=== PATIENT | male | born 1945 | race Caucasian/White ===

== ENCOUNTER 2018-04-19 07:04 | Observation (INO) | payer MEDICARE, OTHER ==
--- NOTE | 2018-04-13 19:01 | HP ---
AMENDED REPORT NOW INCLUDES DESIGNATED COSIGNER HISTORY AND PHYSICAL: DATE OF ADMISSION/SURGERY: 04/19/18 DATE OF OFFICE VISIT: 04/13/18 SURGEON: Bianca Kay MD * (DICTATED BY TANYA KERR) PROCEDURE: Left total knee arthroplasty. CHIEF COMPLAINT: Left knee pain. HISTORY OF PRESENT ILLNESS: Mr. Menchaca is a 72-year-old gentleman with continued complaints of left knee pain. He has failed conservative treatment and elected to proceed with a left total knee arthroplasty, which is scheduled for 04/19/18. PAST MEDICAL HISTORY: High cholesterol and GERD. PAST SURGICAL HISTORY: Right total knee arthroplasty and hernia repair. CURRENT MEDICATIONS: 1. Omeprazole 20 mg daily. 2. Simvastatin 40 mg q.h.s. ALLERGIES: No known drug allergies. FAMILY HISTORY: Cancer and diabetes. SOCIAL HISTORY: This is a 72-year-old gentleman, lives with his . He does not smoke or use drugs. Uses occasional alcohol. REVIEW OF SYSTEMS: A complete 14-point review of systems was reviewed with the patient. It was positive for GERD. He denies a history of DVT, PE, hepatitis, HIV, or anesthesia problems. PHYSICAL EXAMINATION GENERAL: He is well developed, well nourished, in no acute distress. VITAL SIGNS: He stands 5 feet 7 inches tall, weighs 247 pounds. His blood pressure is 138/80, his heart rate is 64. HEENT: Normocephalic, atraumatic. NECK: Supple. No palpable lymph nodes. PULMONARY: The lungs are clear to auscultation bilaterally. CARDIO: Regular rate and rhythm. Strong S1, S2. ABDOMEN: Soft, nontender, nondistended. NEUROLOGICAL: He is alert and oriented x3. MUSCULOSKELETAL: Left lower extremity, the skin is intact. There are no open wounds or abrasions. He has some tenderness over the medial joint line. There is some moderate joint effusion. Range of motion is 10 to 125 degrees of flexion. He has 2+ dorsalis pedis pulse, intact sensation, and his lower extremity muscle group strengths are intact at 5/5. ASSESSMENT AND PLAN: Mr. Menchaca is a 72-year-old gentleman with end-stage osteoarthritis of the left knee. He has failed conservative treatment and elected to proceed with a left total knee arthroplasty. The surgery is scheduled for 04/19/[address] Kay discussed the risks and benefits of the surgery at today's visit and all of his questions were answered. He will follow with Dr. Kay in 2 weeks after the surgery. TANYA KERR [id number]/[facility] #: [id number] ARGELIA
[~2018-04-19 07:04] MED LIST: Buffered Lidocaine 0.9% SYRIN* 5 ML/SYR SYRINGE INTRADERM ONE; Dexamethasone IV* 4 MG/ML 1 ML (4 MG) ONE; EPINEPHRINE 1 MG/ML 1 ML VIAL ONE; KETAMINE HCL* 50 MG/ML 10 ML VIAL ONE; Lactated Ringers 1000 ML Bag* 1,000 ML IV SCH; Lidocaine 2% PF * 5 ML VIAL ONE; Midazolam* 1 MG/ML 2 ML VIAL (2 MG) ONE; Propofol* 10 MG/ML 20 ML BTL ONE; Propofol* 500 MG/50 ML BTL ONE; ROPIVACAINE 5 MG/ML 30 ML BTL (0.5%) ONE; Tranexamic Acid 1,000 MG in NS 0.9% 50 ML* (outpatient use) IV SCH; fentaNYL* 50 MCG/ML 2 ML VIAL (100 MCG VIAL) ONE
--- OUTSIDE RECORDS SUMMARY | 2018-04-19 07:08 | XMS REPORT | Continuity of Care Document ---
:1945 External Reference #:[id number] Author Name Esperanza Jara Care Team Providers Name Role Phone Bethany Do MD Primary Care Physician Unavailable Payers Type Date Identification Numbers Payment Provider Subscriber Policy Number: [id number] Medicare Ansley Gallagher PayID: [id number] [address] [place] [address] Effective: 2010 Policy Number: [id number] Medicare Ansley Gallagher Expires: 2018 PayID: [id number] [address] [place] [address] Effective: 2010 Policy Number: [id number] [employer] Ansley Gallagher PayID: [id number] [address] [place] [address] Advance Directives Description No Information Available Problems Date Description Provider Status Onset: 01/24/2011 Benign essential hypertension Bethany Do M.D. Active Onset: 01/24/2011 Hyperlipidemia Bethany Do M.D. Active Onset: 01/16/2013 Impaired fasting glycaemia Bethany Do M.D. Active Onset: 01/29/2018 Localized, primary osteoarthritis Bianca Kay M.D. 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 Advance Directive Health Care Proxy Zafar Tobacco Use Start: Unknown Never Smoked Cigarettes ETOH Use Denies alcohol use Tobacco Use Start: Unknown Patient has never smoked Smoking Status Reviewed: 04/13/18 Patient has never smoked Exercise Exercises sporadically Type/Frequency Allergies, Adverse Reactions, Alerts Description No Known Drug Allergies Medications Medication Date Status Form Strength Qnty SIG Indications Ordering Provider Omeprazole 10/19/ Active Capsules 20mg 90caps Take 1 [address]21.[address] Capsule By MED CARE MANAGER Mouth Once Daily Simvastatin 01/03/ Active Tablets 40mg 90tabs Take 1 Toro Nelson 2009 Tablet By MED CARE MANAGER Mouth AT Bedtime Trazodone HCL 04/17/ Hx Tablets 50mg 30tabs 1-2 tablets G47.00 Toro Nelson 2017 - at bedtime MED CARE MANAGER 01/28/ as needed. 2017 Clobetasol 04/17/ Hx Cream 0.05% 30gm apply twice 709.9 Toro Leslie, Propionate E 2017 - daily for MED CARE MANAGER 01/28/ up to 2 2017 weeks, stay off for 2 weeks then repeat prn Clobetasol 02/12/ Hx Cream 0.05% 30gm apply twice 709.9 Jennifer Propionate E 2012 - daily for Varn, N.P. 05/ up to 2 2013 weeks, stay off for 2 weeks then repeat prn Aspirin 01/24/ Hx Tablets DR 81mg 1 by mouth Bethany 2010 - once daily Hi, 01/28/ M.D. 2017 Zithromax 03/09/ Hx Tablets 250mg 1Pack two po Mandy Z-Yamil 2009 - initially Cirilo Valentine, 03/19/ then one po FACP 2009 daily Robitussin ac 03/09/ Hx Solution 120cc 1 to 2 tsp Mandy 2009 - every 4 Cirilo Valentine, 01/24/ hours as FACP 2010 needed for cough Viagra 01/03/ Hx Tablets 50mg 1 tablet Bethany 2009 - once daily Hi, 01/05/ as needed M.D. 2009 Aspirin 01/03/ Hx Tablets DR 81mg 1 by mouth Bethany 2009 - once daily Hi, 01/05/ M.D. 2009 Lisinopril/Hy 01/03/ Hx Tablets 20-25mg 90tabs Take 1 Bethany drochlorothia 2009 - Tablet tori Do 04/25/ Daily M.D. 2013 Nexium 01/03/ Hx Capsules 40mg 90caps Take 1 Bethany 2010 - DR Capsule Hi, 03/21/ Daily prn Cirilo 2012 Aspir-81 / Hx Tablets 81mg 30tabs 1 by mouth Bethany 0000 - daily Hi, 01/24/ M.D. 2010 Once Daily / Hx Tablets 1 by mouth Unknown 0000 - every day 2017 Medications Administered in Office Medication Date Status Form Strength Qnty SIG Indications Ordering Provider Matthew Administered Injection Bianca 40MG Cherry Kay M.D. Immunizations CPT Code Status Date Vaccine Lot # [id number] Given 01/24/2018 Influenza Virus Vaccine, Quadrivalent, Split, Preservative Free [id number] Given 12/30/2016 Influenza Virus Vaccine, Quadrivalent, Split, Preservative Free [id number] Given 01/18/2016 Flu Vaccine NOS [id number] Given 04/14/2015 Pneumococcal Conjugate Vaccine 13 Valent For [id number] Intramuscular Use 37728 Given 01/28/2015 Fluzone High Dose 99832 Given 01/24/2014 Fluzone High Dose 64521 Given 02/12/2013 Flu Vaccine Split Virus Preservative Free For Indiv [id number] 3Yr Older 71223 Given 12/24/2011 Influenza Virus 3Yrs & Over 18072 Given 01/05/2010 Influenza Virus 3Yrs & Over 74462 Given 04/16/2009 Influenza Virus Vaccine, Pandemic Formulation 87131 Given 04/16/2009 Administration Swine Flu Shot 15859 Given 01/06/2009 Influenza Virus 3Yrs & Over 60674 Given 01/27/2006 Influenza Virus 3Yrs & Over Vital Signs Date Vital Result Comment 04/13/2018 7:56am Height 67 inches 5'7" Weight 247.00 lb Heart Rate 64 /min BP Systolic 138 mmHg BP Diastolic 80 mmHg BMI (Body Mass Index) 38.7 kg/m2 04/11/2018 10:06am Height 67 inches 5'7" Weight 246.00 lb Heart Rate 62 /min BP Systolic 132 mmHg BP Diastolic 72 mmHg Body Temperature 98.1 F O2 % BldC Oximetry 97 % BMI (Body Mass Index) 38.5 kg/m2 01/29/2018 8:19am Height 67 inches 5'7" Weight 246.00 lb Heart Rate 64 /min BP Systolic 144 mmHg BP Diastolic 84 mmHg Body Temperature 97.6 F Pain Level 6 BMI (Body Mass Index) 38.5 kg/m2 04/17/2017 9:17am Height 66.5 inches 5'6.50" Weight 240.00 lb Heart Rate 71 /min BP Systolic 142 mmHg BP Diastolic 80 mmHg Body Temperature 98.0 F O2 % BldC Oximetry 95 % BMI (Body Mass Index) 38.2 kg/m2 04/15/2016 9:36am Height 66.25 inches 5'6.25" Weight 227.00 lb Heart Rate 70 /min BP Systolic 122 mmHg BP Diastolic 80 mmHg Body Temperature 98.0 F O2 % BldC Oximetry 97 % BMI (Body Mass Index) 36.4 kg/m2 10/20/2015 8:40am Weight 225.00 lb Heart Rate 68 /min BP Systolic Sitting 128 mmHg BP Diastolic Sitting 82 mmHg Respiratory Rate 15 /min Body Temperature 97.8 F O2 % BldC Oximetry 97 % 04/14/2015 9:03am Height 66.25 inches 5'6.25" Weight 223.00 lb Heart Rate 72 /min BP Systolic Sitting 156 mmHg BP Diastolic Sitting 95 mmHg BP Systolic Recheck 136 mmHg BP Diastolic Recheck 86 mmHg Body Temperature 98.5 F O2 % BldC Oximetry 96 % BMI (Body Mass Index) 35.7 kg/m2 10/03/2014 9:21am Weight 221.00 lb Heart Rate 73 /min BP Systolic Sitting 126 mmHg BP Diastolic Sitting 75 mmHg Body Temperature 97.4 F 02/13/2014 10:51am Height 66.50 inches 5'6.50" Weight 214.75 lb Heart Rate 76 /min BP Systolic Sitting 134 mmHg BP Diastolic Sitting 78 mmHg Body Temperature 98.0 F O2 % BldC Oximetry 97 % BMI (Body Mass Index) 34.1 kg/m2 08/12/2013 11:39am Weight 206.50 lb Heart Rate 68 /min BP Systolic Sitting 120 mmHg BP Diastolic Sitting 70 mmHg Body Temperature 98.2 F 03/21/2013 11:27am Weight 202.00 lb Heart Rate 66 /min BP Systolic Sitting 112 mmHg BP Diastolic Sitting 70 mmHg 02/12/2013 8:40am Height 66 inches 5'6" Weight 207.50 lb Heart Rate 68 /min BP Systolic Sitting 128 mmHg BP Diastolic Sitting 64 mmHg BMI (Body Mass Index) 33.5 kg/m2 02/07/2012 1:37pm Height 66.5 inches 5'6.50" Weight 225.00 lb Heart Rate 84 /min BP Systolic Sitting 128 mmHg BP Diastolic Sitting 70 mmHg BMI (Body Mass Index) 35.8 kg/m2 07/28/2011 8:36am Height 66.5 inches 5'6.50" Weight 223.00 lb Heart Rate 64 /min BP Systolic Sitting 134 mmHg BP Diastolic Sitting 62 mmHg BMI (Body Mass Index) 35.5 kg/m2 01/25/2011 4:12pm Height 66.5 inches 5'6.50" Weight 225.50 lb Heart Rate 100 /min BP Systolic Sitting 110 mmHg BP Diastolic Sitting 70 mmHg BMI (Body Mass Index) 35.8 kg/m2 03/09/2010 9:43am Heart Rate 88 /min BP Systolic 118 mmHg BP Diastolic 80 mmHg Body Temperature 98.9 F 01/05/2010 1:03pm Height 66.75 inches 5'6.75" Weight 215.00 lb Heart Rate 96 /min BP Systolic 106 mmHg BP Diastolic 70 mmHg BMI (Body Mass Index) 33.9 kg/m2 Results Test Date Facility Test Result H/L Range Note Order 04/11/2018 [facility]-House EKG <pending> Laboratory test 04/17/2017 [facility] TSH 1.88 mcIU/mL N 0.34- 5.[address] ([place] [address] Wb[employer] [id number]) [phone] CBC Auto Diff 04/17/2017 [facility] White Blood 5.7 10^3/uL N 3.5-10.[address] [place] [address] [phone] Red Blood Count 4.95 10^6/uL N 4.0-5.4 Hemoglobin 15.6 g/dL N 14.0-18.0 Hematocrit 46 % N 42-52 Mean Corpuscular Volume 92 fL N 80-94 Mean Corpuscular Hemoglobin 32 pg High 27-31 Mean Corpuscular HGB Conc 34 g/dL N 31-36 Red Cell Distribution Width 13 % N 10.5-15 Platelet Count 206 10^3/uL N 150-450 Mean Platelet Volume 9 um3 N 7.4-10.4 Abs Neutrophils 3.2 10^3/uL N 1.5-7.7 Abs Lymphocytes 1.8 10^3/uL N 1.0-4.8 Abs Monocytes 0.4 10^3/uL N 0-0.8 Abs Eosinophils 0.2 10^3/uL N 0-0.6 Abs Basophils 0.1 10^3/uL N 0-0.2 Abs Nucleated RBC 0 10^3/uL Granulocyte % 57.0 % N 38-83 Lymphocyte % 31.1 % N 25-47 Monocyte % 7.7 % N 1-9 Eosinophil % 2.9 % N 0-6 Basophil % 1.3 % N 0-2 Nucleated Red Blood Cells % 0.1 Laboratory test 04/17/2017 [facility] Vitamin B12 549 pg/mL N 180-914 1 finding [address] [place] [address] [phone] Vitamin D Total 25(Oh) 16.6 ng/mL Low 20-50 Hemoglobin A1c (Glyco HGB) 6.0 % High 4.0-5.6 2 Lipid Profile 04/07/2017 [facility] Triglycerides 76 mg/dL 3 (Trig/Chol/HDL) [address] [place] [address] [phone] Cholesterol 147 mg/dL 4 HDL Cholesterol 36.8 mg/dL 5 LDL Cholesterol 95 mg/dL 6 Comp Metabolic Panel 04/07/2017 [facility] Sodium 139 mmol/L N 133-145 [address] [place] [address] [phone] Potassium 4.2 mmol/L N 3.5-5.0 Chloride 104 mmol/L N 101-111 Co2 Carbon Dioxide 29 mmol/L N 22-32 Anion Gap 6 mmol/L N 2-11 Glucose 115 mg/dL High 70-100 Blood Urea Nitrogen 16 mg/dL N 6-24 Creatinine 0.84 mg/dL N 0.67-1.17 BUN/Creatinine Ratio 19.0 N 8-20 Calcium 8.7 mg/dL N 8.6-10.3 Total Protein 6.7 g/dL N 6.4-8.9 Albumin 4.0 g/dL N 3.2-5.2 Globulin 2.7 g/dL N 2-4 Albumin/Globulin Ratio 1.5 N 1-3 Total Bilirubin 0.50 mg/dL N 0.2-1.0 Alkaline Phosphatase 74 U/L N 34-104 Alt 40 U/L N 7-52 Ast 26 U/L N 13-39 Egfr Non- 90.1 >60 Egfr 115.8 >60 7 Laboratory test 04/07/2017 [facility] PSA Screening 2.300 ng/mL N 0-4.000 [address] [place] [address] [phone] Lipid Profile 04/15/2016 [facility] Triglycerides 101 mg/dL N 9 (Trig/Chol/HDL) [address] [place] [address] [phone] Cholesterol 141 mg/dL N 10 HDL Cholesterol 35.4 mg/dL N 11 LDL Cholesterol 85 mg/dL N 12 Comp Metabolic Panel 04/15/2016 [facility] Sodium 137 mmol/L N 133-[address] [place] [address] [phone] Potassium 4.1 mmol/L N 3.5-5.0 Chloride 105 mmol/L N 101-111 Co2 Carbon Dioxide 28 mmol/L N 22-32 Anion Gap 4 mmol/L N 2-11 Glucose 110 mg/dL High 70-100 Blood Urea Nitrogen 19 mg/dL N 6-24 Creatinine 0.97 mg/dL N 0.67-1.17 BUN/Creatinine Ratio 19.6 N 8-20 Calcium 8.9 mg/dL N 8.6-10.3 Total Protein 7.0 g/dL N 6.4-8.9 Albumin 4.2 g/dL N 3.2-5.2 Globulin 2.8 g/dL N 2-4 Albumin/Globulin Ratio 1.5 N 1-3 Total Bilirubin 0.50 mg/dL N 0.2-1.0 Alkaline Phosphatase 65 U/L N 34-104 Alt 37 U/L N 7-52 Ast 22 U/L N 13-39 Egfr Non- 76.5 N >60 Egfr 98.4 N >60 13 Laboratory test 04/15/2016 [facility] PSA Screening 1.260 N 0- 4.000 [address] ng/[place] [address] [phone] Laboratory test 10/14/2015 [facility] Hemoglobin A1c 5.9 % N Less than [address] (Glyco HGB) 6.0 [place] [address] [phone] Laboratory test 04/14/2015 [facility] PSA Screening 1.394 N 0- 4.000 [address] ng/[place] [address] [phone] Hepatitis C Antibody Nonreactive N Nonreactive Lipid Profile 03/30/2015 [facility] Triglycerides 137 mg/dL N 17 (Trig/Chol/HDL) [address] [place] [address] [phone] Cholesterol 179 mg/dL N 18 HDL Cholesterol 38.5 mg/dL N 19 LDL Cholesterol 113 mg/dL N 20 Comp Metabolic Panel 03/30/2015 [facility] Sodium 137 mmol/L N 133-[address] [place] [address] [phone] Potassium 4.1 mmol/L N 3.5-5.0 Chloride 103 mmol/L N 101-111 Co2 Carbon Dioxide 26 mmol/L N 22-32 Anion Gap 8 mmol/L N 2-11 Glucose 113 mg/dL High 70-100 Blood Urea Nitrogen 16 mg/dL N 6-24 Creatinine 1.06 mg/dL N 0.67-1.17 BUN/Creatinine Ratio 15.1 N 8-20 Calcium 9.0 mg/dL N 8.6-10.3 Total Protein 7.0 g/dL N 6.4-8.9 Albumin 4.3 g/dL N 3.2-5.2 Globulin 2.7 g/dL N 2-4 Albumin/Globulin Ratio 1.6 N 1-3 Total Bilirubin 0.50 mg/dL N 0.2-1.0 Alkaline Phosphatase 70 U/L N 34-104 Alt 26 U/L N 7-52 Ast 18 U/L N 13-39 Egfr Non- 69.3 N >60 Egfr 89.1 N >60 21 Laboratory test 03/30/2015 [facility] Hemoglobin A1c 6.2 % High Less than [address] (Glyco HGB) 6.[address] [place] [address] [phone] Ua Routine 10/03/2014 [facility] Ua Specific 1.005 [place] Ua PH 5.0 Ua Color yellow Ua Appera clear Ua WBC trace Ua Protein neg Ua Glucose neg Ua Ketones trace Ua Bilirubin small Ua Urobilinogen normal Ua Nitrite neg Ua Occult Blood neg Urinalysis Profile 10/03/2014 [facility] Urine Color Yellow N [address] [place] [address] [phone] Urine Appearance Clear N Urine Specific [place] 1.011 N 1.010-1.030 Urine pH 5.0 N 5-9 Urine Urobilinogen Negative N Negative Urine Ketones Negative N Negative Urine Protein Negative N Negative Urine Leukocytes Trace Abnormal Negative Urine Blood Negative N Negative Urine Nitrite Negative N Negative Urine Bilirubin Negative N Negative Urine Glucose Negative N Negative Urine White Blood Cell Trace(0-5/hpf) N Absent Urine Red Blood Cell Absent N Absent Urine Bacteria Absent N Absent Urine Squamous Epithelial Cell Present Abnormal Absent Ua And Culture 10/03/2014 [facility] Urine Culture And SEE RESULT [address] [place] [address] [phone] Laboratory test 10/03/2014 [facility] Amylase 53 U/L N 29-[address] [place] [address] [phone] Lipase 14 U/L N 11.0-82.0 Comp Metabolic Panel 10/03/2014 [facility] Sodium 137 mmol/L N 133-[address] [place] [address] [phone] Potassium 4.6 mmol/L N 3.5-5.0 Chloride 103 mmol/L N 101-111 Co2 Carbon Dioxide 29 mmol/L N 22-32 Anion Gap 5 mmol/L N 2-11 Glucose 110 mg/dL High 70-100 Blood Urea Nitrogen 14 mg/dL N 6-24 Creatinine 1.05 mg/dL N 0.67-1.17 BUN/Creatinine Ratio 13.3 N 8-20 Calcium 9.6 mg/dL N 8.6-10.3 Total Protein 7.5 g/dL N 6.4-8.9 Albumin 4.7 g/dL N 3.2-5.2 Globulin 2.8 g/dL N 2-4 Albumin/Globulin Ratio 1.7 N 1-3 Total Bilirubin 0.60 mg/dL N 0.2-1.0 Alkaline Phosphatase 78 U/L N 34-104 Alt 31 U/L N 7-52 Ast 20 U/L N 13-39 Egfr Non- 70.2 N >60 Egfr 90.3 N >60 24 Laboratory test 10/03/2014 [facility] D Dimer < 200 N Less [address] Quantitative ng/mL Than [address] [place] [address] [phone] Laboratory test 04/07/2014 PSA Diagnostic 1.799 N 0-4.000 26 finding ng/mL Lipid Profile 04/07/2014 Triglycerides 101 mg/dL N 27 (Trig/Chol/HDL) Cholesterol 162 mg/dL N 28 HDL Cholesterol 42.1 mg/dL N 29 LDL Cholesterol 100 mg/dL N 30 Liver Function Panel 04/07/2014 Total Protein 6.8 g/dL N 6.4-8.9 Albumin 4.2 g/dL N 3.2-5.2 Globulin 2.6 g/dL N 2-4 Albumin/Globulin Ratio 1.6 N 1-3 Total Bilirubin 0.70 mg/dL N 0.2-1.0 Direct Bilirubin 0.10 mg/dL N 0.03-0.18 Indirect Bilirubin 0.6 mg/dL N 0.3-1.0 Alkaline Phosphatase 74 U/L N 34-104 Alt 43 U/L N 7-52 Ast 22 U/L N 13-39 Lipid Profile 02/05/2014 [facility] Triglycerides 105 mg/dL N 31 (Trig/Chol/HDL) [address] [place] [address] [phone] Cholesterol 229 mg/dL N 32 HDL Cholesterol 37.7 mg/dL N 33 LDL Cholesterol 170 mg/dL N 34 Comp Metabolic Panel 02/05/2014 [facility] Sodium 138 mmol/L N 133-[address] [place] [address] [phone] Potassium 4.2 mmol/L N 3.7-5.6 Chloride 106 mmol/L N 101-111 Co2 Carbon Dioxide 28 mmol/L N 22-32 Anion Gap 4 mmol/L N 2-11 Glucose 101 mg/dL High 70-100 Blood Urea Nitrogen 18 mg/dL N 6-24 Creatinine 0.96 mg/dL N 0.67-1.17 BUN/Creatinine Ratio 18.8 N 8-20 Calcium 8.8 mg/dL N 8.6-10.3 Total Protein 6.8 g/dL N 6.4-8.9 Albumin 4.0 g/dL N 3.2-5.2 Globulin 2.8 g/dL N 2-4 Albumin/Globulin Ratio 1.4 N 1-3 Total Bilirubin 0.50 mg/dL N 0.2-1.0 Alkaline Phosphatase 76 U/L N 34-104 Alt 23 U/L N 7-52 Ast 16 U/L N 13-39 Egfr Non- 77.9 N >60 Egfr 100.2 N >60 35 Comp Metabolic Panel 01/18/2013 [facility] Sodium 138 mmol/L 133-[address] [place] [address] [phone] Potassium 4.2 mmol/L 3.5-5.0 Chloride 105 mmol/L 101-111 Co2 Carbon Dioxide 27.0 mmol/L 22-32 Anion Gap 6.0 mmol/L 2-11 Glucose 100 mg/dL 70-100 Blood Urea Nitrogen 20 mg/dL 6-24 Creatinine 1.10 mg/dL 0.50-1.40 BUN/Creatinine Ratio 18.2 8-20 Calcium 9.3 mg/dL 8.1-9.9 Total Protein 6.8 g/dL 6.2-8.1 Albumin 4.2 g/dL 3.2-5.2 Globulin 2.6 g/dL 2-4 Albumin/Globulin Ratio 1.6 1-3 Total Bilirubin 0.8 mg/dL 0.4-1.5 Alkaline Phosphatase 66 U/L 30-110 Alt 29 U/L 14-54 Ast 24 U/L 12-42 Egfr Non- 66.8 >60 Egfr 85.9 >60 36 Lipid Profile 01/18/2013 [facility] Triglycerides 63 mg/dL 40 -200 (Trig/Chol/HDL) [address] [place] [address] [phone] Cholesterol 130 mg/dL Less than 200 HDL Cholesterol 35 mg/dL Low 40-60 37 Cholesterol/HDL Ratio 3.7 Average 1-4.44 LDL Cholesterol 82.4 Less Than 100 38 Laboratory test 01/18/2013 [facility] Hemoglobin A1c 5.8 % Less than [address] [place] [address] [phone] Laboratory test 03/05/2012 [facility] PSA Diagnostic 1.3 0- 4.0 [address] NG/[place] [address] [phone] Ua Routine 02/07/2012 [facility] House Ua Specific 1.010 [place] Ua PH 6 Ua Color yellow Ua Appera clear Ua WBC neg Ua Protein neg Ua Glucose neg Ua Ketones neg Ua Bilirubin neg Ua Urobilinogen neg Ua Nitrite neg Ua Occult Blood neg Comp Metabolic Panel 12/21/2011 [facility] Sodium 139 mmol/L 135-[address] [place] [address] [phone] Potassium 4.3 mmol/L 3.5-5.0 Chloride 103 mmol/L 101-111 Co2 (Carbon Dioxide) 29.0 mmol/L 22-32 Anion Gap 7.0 mmol/L 2-11 41 Glucose 107 mg/dL High 70-100 BUN 21 mg/dL 6-24 Creatinine 0.9 mg/dL 0.50-1.40 One Over Creatinine 1.11 BUN/Creatinine Ratio 23.3 High 8-20 Calcium 9.3 mg/dL 8.1-9.9 Total Protein 7.5 GM/DL 6.2-8.1 Albumin 4.3 GM/DL 3.2-5.2 Globulin 3.2 GM/DL 2-4 Albumin/Globulin Ratio 1.3 1-3 Bilirubin Total 0.9 mg/dL 0.4-1.5 42 Alkaline Phosphatase 71 U/L 39-117 Alt (SGPT) 32 U/L 17-63 Ast (Sgot) 24 U/L 12-42 eGFR Non- 84.4 > 60 eGFR 108.6 > 60 43 Laboratory test 12/21/2011 [facility] Hemoglobin A1c 6.1 % High Less Than [address] [place] [address] [phone] Lipid Profile 12/21/2011 [facility] Triglyceride 76 mg/dL 40- 200 (Trig/Chol/HDL) [address] [place] [address] [phone] Cholesterol 166 mg/dL Less Than 200 45 High Density Lipoprotein 39 mg/dL Low 40-60 46 Cholesterol/HDL Ratio 4.26 AVERAGE 1-4.97 Low Density Lipoprotein 112 mg/dL High Less Than 100 47 Surgical 02/14/2011 [facility] Surgical [address] Pathology <SEE NOTE> [place] [address] [phone] Laboratory 01/17/2011 [facility] PSA Screening 1.29 NG/ML 0- 4 49 test finding [address] [place] [address] [phone] Comp Metabolic 01/17/2011 [facility] Sodium 140 mmol/L 135- Panel [address] [place] [address] [phone] Potassium 4.4 mmol/L 3.5-5.0 Chloride 104 mmol/L 101-111 Co2 (Carbon Dioxide) 30.0 mmol/L 22-32 Anion Gap 6.0 mmol/L 2-11 50 Glucose 117 mg/dL High 70-100 BUN 23 mg/dL 6-24 Creatinine 1.0 mg/dL 0.50-1.40 One Over Creatinine 1.00 BUN/Creatinine Ratio 23.0 High 8-20 Calcium 9.1 mg/dL 8.1-9.9 Total Protein 6.6 GM/DL 6.2-8.1 Albumin 4.0 GM/DL 3.2-5.2 Globulin 2.6 GM/DL 2-4 Albumin/Globulin Ratio 1.5 1-3 Bilirubin Total 0.6 mg/dL 0.4-1.5 51 Alkaline Phosphatase 63 U/L 39-117 Alt (SGPT) 33 U/L 17-63 Ast (Sgot) 21 U/L 12-42 eGFR Non- 75.0 > 60 eGFR 96.4 > 60 52 Lipid Profile 01/17/2011 [facility] Triglyceride 96 mg/dL 40- 200 (Trig/Chol/HDL) [address] [place] [address] [phone] Cholesterol 166 mg/dL Less Than 200 53 High Density Lipoprotein 34 mg/dL Low 40-60 54 Cholesterol/HDL Ratio 4.88 AVERAGE 1-4.97 Low Density Lipoprotein 113 mg/dL High Less Than 100 55 Laboratory test 01/17/2011 [facility] Hemoglobin A1c 6.0 % Less Than [address] [place] [address] [phone] Laboratory test 01/20/2010 [facility] PSA Screening 1.13 0-4 [address] NG/[place] [address] [phone] Hemoglobin A1c 6.0 % Less Than 6.0 58 CBC With 01/20/2010 [facility] White Blood 6.3 CUMM 4.8-10.8 Electronic Diff [address] [place] [address] [phone] Red Cell Count 4.57 CUMM Low 4.6-6.2 Hemoglobin 14.7 g/dL 14.0-18.0 Hematocrit 43 % 42-52 Mean Corpuscular Volume 94 um3 80-94 Mean Corpuscular Hemoglob 32 pg High 27-31 Mean Corpuscular HGB Cone 34 g/dL 32-36 Redcell Distribution WDTH 13 % 10.5-15 Platelet Count 214 CUMM 150-450 Mean Platelet Volume 8.6 um3 7.4-10.4 Gran % 57.8 % 38-83 Lymph % 30.9 % 25-47 Mononuclear % 9.5 % High 1-9 Eosinophil % 1.4 % 0-6 Basophil % 0.4 % 0-2 Abs Lymphs 2.0 1.0-4.8 Abs Mononuclear 0.6 0-0.8 Absolute Neutrophil Count 3.7 1.5-7.7 Abs Eosinophils 0.1 0-0.6 Abs Basophils 0 0-0.2 1 Normal Range 180 to 914 Indeterminate Range 145 to 180 Deficient Range <145 2 Therapeutic target for the treatment of diabetes mellitus patients is <7% HBA1C, and in selective patients <6.0%. Please refer to [place] [employer] diabetic care guidelines for further information. 3 Desirable: <150 Borderline High: 150-199 High: 200-499 Very High: >500 4 Desirable: <200 Borderline High: 200-239 High: >239 5 Low: <40 Desirable: 40-60 High: >60 6 Desirable: <100 Near Optimal: 100-129 Borderline High: 130-159 High: 160-189 Very High: >189 7 Because ethnic data is not always readily available, this report includes an eGFR for both -Americans and non- Americans. The National Kidney Disease Education Program (NKDEP) does not endorse the use of the MDRD equation for patients that are not between the ages of 18 and 70, are , have extremes of body size, muscle mass, or nutritional status, or are non- or non-. According to the National Kidney Foundation, irrespective of diagnosis, the stage of the disease is based on the level of kidney function: Stage Description GFR(mL/min/1.73 m(2)) 1 Kidney damage with normal or decreased GFR 90 2 Kidney damage with mild decrease in GFR 60-89 3 Moderate decrease in GFR 30-59 4 Severe decrease in GFR 15-29 5 Kidney failure <15 (or dialysis) 8 Serum levels of PSA measured using the [employer] DXI Hybritech immunoassay should not be interpreted as absolute evidence of the presence or absence of disease. The PSA value should be used in conjunction with other pertinent clinical diagnostic procedures. The values obtained with different assay methods or kits cannot be used interchangeably. 9 Desirable <150 Borderline high 150-199 High 200-499 Very High >500 10 Desirable <200 Borderline high 200-239 High >239 11 Low <40 Desirable: 40-60 High: >60 12 Desirable: <100 mg/dL Near Optimal: 100-129 mg/dL Borderline High: 130-159 mg/dL High: 160-189 mg/dL Very High: >189 mg/dL 13 Because ethnic data is not always readily available, this report includes an eGFR for both -Americans and non- Americans. The National Kidney Disease Education Program (NKDEP) does not endorse the use of the MDRD equation for patients that are not between the ages of 18 and 70, are , have extremes of body size, muscle mass, or nutritional status, or are non- or non-. According to the National Kidney Foundation, irrespective of diagnosis, the stage of the disease is based on the level of kidney function: Stage Description GFR(mL/min/1.73 m(2)) 1 Kidney damage with normal or decreased GFR 90 2 Kidney damage with mild decrease in GFR 60-89 3 Moderate decrease in GFR 30-59 4 Severe decrease in GFR 15-29 5 Kidney failure <15 (or dialysis) 14 Serum levels of PSA measured using the [employer] D[employer] Hybrite[employer] immunoassay should not be interpreted as absolute evidence of the presence or absence of disease. The PSA value should be used in conjunction with other pertinent clinical diagnostic procedures. The values obtained with different assay methods or kits cannot be used interchangeably. 15 Therapeutic target for the treatment of diabetes Mellitus patients is <7% HBA1C, and in selective patients <6.0%.Please refer to [place] [employer] Diabetic care guidelines for further information. 16 Serum levels of PSA measured using the Ruchi Fairbanks DXI Hybritech immunoassay should not be interpreted as absolute evidence of the presence or absence of disease. The PSA value should be used in conjunction with other pertinent clinical diagnostic procedures. The values obtained with different assay methods or kits cannot be used interchangeably. 17 Desirable <150 Borderline high 150-199 High 200-499 Very High >500 18 Desirable <200 Borderline high 200-239 High >239 19 Low <40 Desirable: 40-60 High: >60 20 Desirable: <100 mg/dL Near Optimal: 100-129 mg/dL Borderline High: 130-159 mg/dL High: 160-189 mg/dL Very High: >189 mg/dL 21 Because ethnic data is not always readily available, this report includes an eGFR for both -Americans and non- Americans. The National Kidney Disease Education Program (NKDEP) does not endorse the use of the MDRD equation for patients that are not between the ages of 18 and 70, are , have extremes of body size, muscle mass, or nutritional status, or are non- or non-. According to the National Kidney Foundation, irrespective of diagnosis, the stage of the disease is based on the level of kidney function: Stage Description GFR(mL/min/1.73 m(2)) 1 Kidney damage with normal or decreased GFR 90 2 Kidney damage with mild decrease in GFR 60-89 3 Moderate decrease in GFR 30-59 4 Severe decrease in GFR 15-29 5 Kidney failure <15 (or dialysis) 22 Therapeutic target for the treatment of diabetes Mellitus patients is <7% HBA1C, and in selective patients <6.0%.Please refer to [place] [employer] Diabetic care guidelines for further information. 23 SEE RESULT BELOW Name: ANSLEY GALLAGHER : [address]: Toro Nelson NP Acct: [id number] Unit: [id number] AGE: 68 Location: [facility] Re10/03/14 SEX: M Status: REG REF SPEC: [id number] RUBEN: 10/03/14-[address]: Toro Nelson NP REQ: [id number] RECD: 10/03/14 STATUS: COMP _ SOURCE: URINE SPDESC: ORDERED: Urine Culture Procedure Result Verified Site Urine Culture Final 10/05/14- 1017 ML No Growth Day 2 (<1,000 CFU/mL) * ML - MAIN LAB ([facility]) . END OF REPORT * ML=Testing performed at Main Lab DEPARTMENT OF PATHOLOGY, [address] [place] [address] Madan Hoyos M.D. Director [facility] # [id number] 24 Because ethnic data is not always readily available, this report includes an eGFR for both -Americans and non- Americans. The National Kidney Disease Education Program (NKDEP) does not endorse the use of the MDRD equation for patients that are not between the ages of 18 and 70, are , have extremes of body size, muscle mass, or nutritional status, or are non- or non-. According to the National Kidney Foundation, irrespective of diagnosis, the stage of the disease is based on the level of kidney function: Stage Description GFR(mL/min/1.73 m(2)) 1 Kidney damage with normal or decreased GFR 90 2 Kidney damage with mild decrease in GFR 60-89 3 Moderate decrease in GFR 30-59 4 Severe decrease in GFR 15-29 5 Kidney failure <15 (or dialysis) 25 Please note: The following may produce a false positive D Dimer test: - Rheumatoid factor greater than 60 IU/ml - Plasma hemoglobin greater than 0.05 gm/dl - Bilirubin greater than 50 mg/dl - Lipids greater than 1000 mg/dl - FDP greater than 20 ug/ml 26 Serum levels of PSA measured using the Ruchi Fairbanks DXI Hybritech immunoassay should not be interpreted as absolute evidence of the presence or absence of disease. The PSA value should be used in conjunction with other pertinent clinical diagnostic procedures. The values obtained with different assay methods or kits cannot be used interchangeably. 27 Desirable <150 Borderline high 150-199 High 200-499 Very High >500 28 Desirable <200 Borderline high 200-239 High >239 29 Low <40 Desirable: 40-60 High: >60 30 Desirable <100 Near Optimal 100-129 Borderline high 130-159 High 160-189 Very High >189 31 Desirable <150 Borderline high 150-199 High 200-499 Very High >500 32 Desirable <200 Borderline high 200-239 High >239 33 Low <40 Desirable: 40-60 High: >60 34 Desirable <100 Near Optimal 100-129 Borderline high 130-159 High 160-189 Very High >189 35 Because ethnic data is not always readily available, this report includes an eGFR for both -Americans and non- Americans. The National Kidney Disease Education Program (NKDEP) does not endorse the use of the MDRD equation for patients that are not between the ages of 18 and 70, are , have extremes of body size, muscle mass, or nutritional status, or are non- or non-. According to the National Kidney Foundation, irrespective of diagnosis, the stage of the disease is based on the level of kidney function: Stage Description GFR(mL/min/1.73 m(2)) 1 Kidney damage with normal or decreased GFR 90 2 Kidney damage with mild decrease in GFR 60-89 3 Moderate decrease in GFR 30-59 4 Severe decrease in GFR 15-29 5 Kidney failure <15 (or dialysis) 36 Because ethnic data is not always readily available, this report includes an eGFR for both -Americans and non- Americans. The National Kidney Disease Education Program (NKDEP) does not endorse the use of the MDRD equation for patients that are not between the ages of 18 and 70, are , have extremes of body size, muscle mass, or nutritional status, or are non- or non-. According to the National Kidney Foundation, irrespective of diagnosis, the stage of the disease is based on the level of kidney function: Stage Description GFR(mL/min/1.73 m(2)) 1 Kidney damage with normal or decreased GFR 90 2 Kidney damage with mild decrease in GFR 60-89 3 Moderate decrease in GFR 30-59 4 Severe decrease in GFR 15-29 5 Kidney failure <15 (or dialysis) 37 HDL Interpretation: Undesirable: High Risk: Less than 40 mg/dL Desirable: Low Risk: Greater than 60 mg/dL 38 LDL Interpretation: Low Risk Optimal Level: LDL Less than 100 mg/dL Near or Above Optimal: LDL 100-129 mg/dL Borderline High Risk: LDL 130-159 mg/dL High Risk: LDL 160-189 mg/dL Very High Risk: LDL Greater than 189 mg/dL 39 Therapeutic target for the treatment of diabetes Mellitus patients is <7% HBA1C, and in selective patients <6.0%.Please refer to [place] [employer] Diabetic care guidelines for further information. 40 Serum levels of PSA measured using the Ruchi Fairbanks DXI Hybritech immunoassay should not be interpreted as absolute evidence of the presence or absence of disease. The PSA value should be used in conjunction with other pertinent clinical diagnostic procedures. The values obtained with different assay methods or kits cannot be used interchangeably. 41 Anion gap measurement may be of limited value in the presence of any alkalosis, especially in a combined acid base disorder. . 42 A metabolite of Naproxen, O-desmethylnaproxen, has been shown to interfere with the Jendrassik-Trenton method for measuring total bilirubin. Samples from patients who have taken Naproxen have shown spurious elevation in total bilirubin levels. 43 Because ethnic data is not always readily available, this report includes an eGFR for both -Americans and non- Americans. The National Kidney Disease Education Program (NKDEP) does not endorse the use of the MDRD equation for patients that are not between the ages of 18 and 70, are , have extremes of body size, muscle mass, or nutritional status, or are non- or non-. According to the National Kidney Foundation, irrespective of diagnosis, the stage of the disease is based on the level of kidney function: Stage Description GFR(mL/min/1.73 m(2)) 1 Kidney damage with normal or decreased GFR 90 2 Kidney damage with mild decrease in GFR 60-89 3 Moderate decrease in GFR 30-59 4 Severe decrease in GFR 15-29 5 Kidney failure <15 (or dialysis) 44 THERAPEUTIC TARGET FOR THE TREATMENT OF DIABETES MELLITUS PATIENTS IS <7% HBA1C, AND IN SELECTIVE PATIENTS <6.0%. PLEASE REFER TO [place] [employer] DIABETIC CARE GUIDELINES FOR FURTHER INFORMATION. 45 CHOLESTEROL INTERPRETATION: Desirable: Less than 200 MG/DL Borderline-High Risk: 200-239 MG/DL High-Risk: 240 MG/DL and over 46 HDL INTERPRETATION: Undesirable: High Risk: Less than 40 MG/DL Desirable: Low Risk: Greater than 60 MG/DL 47 LDL INTERPRETATION: Low Risk Optimal Level: LDL Less than 100 MG/DL Near or Above Optimal: LDL 100-129 MG/DL Borderline High Risk: LDL 130-159 MG/DL High Risk: LDL 160-189 MG/DL Very High Risk: LDL Greater than 189 MG/DL 48 ---- RUN DATE: 02/15/11 [facility] NMI LIVE PAGE 1 RUN TIME: 1435 Specimen Inquiry RUN USER: INTERFACE -- Name: ANSLEY GALLAGHER Status: REG REF Re02/14/11 Age/Sex: 65/M Unit#: [id number] Location: [facility] : [birth year] -- Specimen: [id number] SOUT Spec Date: 02/14/[address] [facility] [address]: Dg pryor MD Spec Type: SURGICAL P Received: 02/14/11-5120 Copies to: Bethany barrera MD SPECIMEN 1) BIOPSY COLON POLYP AT 20 CM. 2) COLON POLYP AT 19 CM. HISTORY POST-OP DIAGNOSIS: To cecum, one biopsy and one snare; tics CLINICAL INFORMATION: Screening GROSS DESCRIPTION 1) The specimen is received in formalin labelled Ansley Gallagher, Biopsy Colon Polyp at 20 cm., and consists of a stafford, polypoid fragment measuring 0.2 x 0.2 x 0.1 cm. Submitted entirely, one cassette. 2) The specimen is received in formalin labelled Ansley JPamela Gallagher, Colon Polyp at 19 cm., and consists of multiple stafford, soft tissue fragments measuring 0.6 x 0.3 x 0.2 cm. in aggregate. Submitted entirely, one cassette. DIAGNOSIS 1) Colon, 20 cm., biopsy: Inflamed hyperplastic polyp. 2) Colon, 19 cm., biopsy: A. Tubular adenoma. B. No high grade dysplasia or malignancy. Signed Electronically by: MADAN HOYOS MD 02/15/11 1432 -- -- DEPARTMENT OF PATHOLOGY, [address] [place] [address] [place] Permit #[id number] Cirilo Garcia M.D. Lieutenant General Dir sydnee -- 49 * SERUM LEVELS OF PSA MEASURED USING THE [employer]CH[employer] ACCESS HYBRITECH IMMUNOASSAY SHOULD NOT BE INTERPRETED ABSOLUTE EVIDENCE OF THE PRESENCE OR ABSENCE OF DISEASE. THE PSA VALUE SHOULD BE USED IN CONJUNCTION WITH OTHER PERTINENT CLINICAL DIAGNOSTIC PROCEDURES. 50 Anion gap measurement may be of limited value in the presence of any alkalosis, especially in a combined acid base disorder. . 51 A metabolite of Naproxen, O-desmethylnaproxen, has been shown to interfere with the Jendrassik-Cromberg method for measuring total bilirubin. Samples from patients who have taken Naproxen have shown spurious elevation in total bilirubin levels. 52 Because ethnic data is not always readily available, this report includes an eGFR for both -Americans and non- Americans. The National Kidney Disease Education Program (NKDEP) does not endorse the use of the MDRD equation for patients that are not between the ages of 18 and 70, are , have extremes of body size, muscle mass, or nutritional status, or are non- or non-. According to the National Kidney Foundation, irrespective of diagnosis, the stage of the disease is based on the level of kidney function: Stage Description GFR(mL/min/1.73 m(2)) 1 Kidney damage with normal or decreased GFR 90 2 Kidney damage with mild decrease in GFR 60-89 3 Moderate decrease in GFR 30-59 4 Severe decrease in GFR 15-29 5 Kidney failure <15 (or dialysis) 53 CHOLESTEROL INTERPRETATION: Desirable: Less than 200 MG/DL Borderline-High Risk: 200-239 MG/DL High-Risk: 240 MG/DL and over 54 HDL INTERPRETATION: Undesirable: High Risk: Less than 40 MG/DL Desirable: Low Risk: Greater than 60 MG/DL 55 LDL INTERPRETATION: Low Risk Optimal Level: LDL Less than 100 MG/DL Near or Above Optimal: LDL 100-129 MG/DL Borderline High Risk: LDL 130-159 MG/DL High Risk: LDL 160-189 MG/DL Very High Risk: LDL Greater than 189 MG/DL 56 THERAPEUTIC TARGET FOR THE TREATMENT OF DIABETES MELLITUS PATIENTS IS <7% HBA1C, AND IN SELECTIVE PATIENTS <6.0%. PLEASE REFER TO [place] [employer]ATION DIABETIC CARE GUIDELINES FOR FURTHER INFORMATION. 57 * SERUM LEVELS OF PSA MEASURED USING THE [employer] ACCESS HYBRITECH IMMUNOASSAY SHOULD NOT BE INTERPRETED ABSOLUTE EVIDENCE OF THE PRESENCE OR ABSENCE OF DISEASE. THE PSA VALUE SHOULD BE USED IN CONJUNCTION WITH OTHER PERTINENT CLINICAL DIAGNOSTIC PROCEDURES. 58 THERAPEUTIC TARGET FOR THE TREATMENT OF DIABETES MELLITUS PATIENTS IS <7% HBA1C, AND IN SELECTIVE PATIENTS <6.0%. PLEASE REFER TO [place] [employer]ATION DIABETIC CARE GUIDELINES FOR FURTHER INFORMATION. Procedures Date Code Description Status 04/11/2018 19618 EKG Tracing & Interpretation Completed 01/29/2018 25548 Inject/Drain Joint/Bursa Major W/O US Completed 03/01/2016 [id number] Colonoscopy Completed 02/14/2011 [id number] Colonoscopy Completed 01/05/2010 07297 EKG Tracing & Interpretation Completed 04/16/2009 14199 EKG Tracing & Interpretation Completed 01/06/2009 41742 EKG Tracing & Interpretation Completed 11/25/2008 [id number] Diabetic Retinal Eye Exam Completed 03/05/2007 53623 EKG Tracing & Interpretation Completed 03/05/2007 80726 EKG Tracing & Interpretation Completed Encounters Type Date Location Provider Dx Diagnosis Office Visit 01/29/2018 [facility] Bian[facility] Kay, M25.562 Pain in left knee 8:00a [facility] M25.462 Effusion, left knee M17.12 Unilateral primary osteoarthritis, left knee Office Visit 04/17/2017 9:20a [facility] Internal Toro Leslie, Z00.00 Encntr for Medicine - MED CARE MANAGER general adult Hermann medical exam w/o abnormal findings E78.5 Hyperlipidemia, unspecified R73.01 Impaired fasting glucose J20.9 Acute bronchitis, unspecified R53.83 Other fatigue R45.4 Irritability and anger G47.00 Insomnia, unspecified Office Visit 10/20/2015 8:40a [facility] Internal Torojuventino Nelson, I10 Essential ( primary) Medicine - MED CARE MANAGER hypertension Hermann R73.01 Impaired fasting glucose K21.9 Gastro-esophageal reflux disease without esophagitis R10.31 Right lower quadrant pain Office Visit 10/03/2014 9:40a [facility] Internal Toro Leslie, 789.09 Pain Abdominal Medicine - MED CARE MANAGER Other Spec Site Hermann 786.52 Painful Respiration 789.07 Pain Abdominal Generalized 724.2 Lumbago Office Visit 02/13/2014 10:40a [facility] Internal Jennifer Guajardo, V70.0 Examination Medicine - N.P. General Medical Hermann Routine AT Health Care Facility 401.1 Hypertension Benign 272.4 Hyperlipidemia Other Unspec 790.21 Impaired Fasting Glucose 530.81 Esophageal Reflux 600.00 Hypertrophy Prostate W/O Urinary Obstruction & Other Luts Office Visit 08/12/2013 11:40a [facility] Internal Jennifer Guajardo, 401.1 Hypertension Medicine - N.P. Benign Hermann Office Visit 03/21/2013 11:20a [facility] Internal [place] 401.1 Hypertension Kellen Do M.D. Benign Hermann Office Visit 02/12/2013 8:40a [facility] Internal Jennifer Guajardo, V70.0 Examination Medicine - N.P. General Medical Hermann Routine AT Health Care Facility 401.1 Hypertension Benign 272.4 Hyperlipidemia Other Unspec 790.21 Impaired Fasting Glucose 530.81 Esophageal Reflux V04.81 Need For Prophylactic Vaccination & Inoculation/Influenza 709.9 Skin & Subcutaneous Tissue Disorders Unspec Office Visit 07/28/2011 8:40a [facility] Internal [place] 401.1 Hypertension Kellen Do M.D. Benign Hermann 790.21 Impaired Fasting Glucose 272.4 Hyperlipidemia Other Unspec 530.81 Esophageal Reflux Office Visit 03/09/2010 DO Not Use Jennifer Guajardo, 466.0 Bronchitis Acute 9:45a [facility] N.P. Office Visit 01/05/2010 DO Not Use Bethany V72.83 Examination 1:15p Matteo Do M.D. Preoperative Other Spec V72.84 Examination Preoperative Unspec 836.0 Dislocation Knee Tear Of Medial Cartilage Or Meniscus Curren 401.1 Hypertension Benign 272.4 Hyperlipidemia Other Unspec 790.21 Impaired Fasting Glucose V04.81 Need For Prophylactic Vaccination & Inoculation/Influenza Office Visit 07/07/2009 1:15p DO Not Use Radshaileshki, 790.21 Impaired Matteo Vogel M.D. Fasting Glucose 272.4 Hyperlipidemia Other Unspec 401.1 Hypertension Benign Office Visit 04/16/2009 DO Not Use Rad[place]ki, V72.84 Examination 2:15p Matteo Vogel M.D. Preoperative Unspec 782.1 Rash & Other Nonspec Skin Eruption 401.1 Hypertension Benign V04.81 Need For Prophylactic Vaccination & Inoculation/Influenza Office Visit 01/06/2009 DO Not Use Rad[place]ki, V70.0 Examination 1:15p Matteo Vogel M.D. General Medical Routine AT Health Care Facility 401.1 Hypertension Benign 530.81 Esophageal Reflux Office 10/30/2008 DO Not Use Rad[place]ki, 790.21 Impaired Fasting Glucose Visit 2:30p Matteo Vogel M.D. Office 10/28/2008 DO Not Use Rad[place]ki, 272.0 Hypercholesterolemia Visit 10:00a Matteo Vogel M.D. Pure 607.89 Penis Disorder Other 401.1 Hypertension Benign Office Visit 03/28/2007 DO Not Use Jennifer Varn, 465.9 URI Upper 3:15p Health Outreach Worker-[facility]ermann N.P. Respiratory Infections Acute Unspec Sites 466.0 Bronchitis Acute Office Visit 03/05/2007 DO Not Use Rad[place], V72.81 Examination 11:15a Matteo Vogel M.D. Preoperative Cardiovascular 401.1 Hypertension Benign 277.7 Dysmetabolic Syndrome X Office 12/27/2006 DO Not Use Rad[place], 272.0 Hypercholesterolemia Visit 8:30a Matteo Vogel M.D. Pure 401.1 Hypertension Benign Office Visit 09/25/2006 DO Not Use Rad[place]ki, 401.1 Hypertension 8:30a Matteo Vogel M.D. Benign 272.0 Hypercholesterolemia Pure 277.7 Dysmetabolic Syndrome X Office Visit 04/20/2006 DO Not Use Rad[place], 346.90 Migraine Unspec 1:15p Matteo Vogel M.D. W/O Intractable W/O Status Migrainosus 401.1 Hypertension Benign Office Visit 03/27/2006 DO Not Use Rad[place], 401.1 Hypertension 9:00a Matteo Vogel M.D. Benign 277.7 Dysmetabolic Syndrome X 272.0 Hypercholesterolemia Pure 790.21 Impaired Fasting Glucose Office Visit 01/27/2006 9:00a DO Not Use Jennifer Varn, 466.0 Bronchitis Acute [facility] N.P. 416.9 Pulmonary Heart Disease Unspec Chronic Plan of Treatment Future Appointment(s):05/04/2018 1:45 pm - Bianca Kay M.D. at [facility]04/12/2019 11:00 am - Toro Nelson NP at [facility] Internal Medicine - Sftpjnxwp76/10/2019 10:15 am - Andrew Giron PA-C at [facility]04/19/2018 10:15 am - TANYA Norton at [facility].04/19/2018 10:15 am - Bianca Kay M.D. at [facility].04/13/2018 - Bianca Kay M.D.M25.562 Pain in left kneeFollow up:Follow up: 2 weeks after borxtuuA17.462 Effusion, left kneeM17.12 Unilateral primary osteoarthritis, left knee
--- OUTSIDE RECORDS SUMMARY | 2018-04-19 07:09 | XMS REPORT | Continuity of Care Document ---
:1945 External Reference #:[id number] Author Name Castro, Oksana Care Team Providers Name Role Phone Bethany Do MD Primary Care Physician Unavailable Payers Type Date Identification Numbers Payment Provider Subscriber Policy Number: [id number] Medicare Ansley Gallagher PayID: [id number] [address] [place] [address] Effective: 2010 Policy Number: [id number] Medicare Ansley Gallagher Expires: 2018 PayID: [id number] [address] [place] [address] Effective: 2010 Policy Number: [id number] [employer] Ansley Gallagher PayID: [id number] [address] [place] [address] Advance Directives Description No Information Available Problems [...] Marital Status Lives With Spouse 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 [employer] 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 Advance Directive Health Care Proxy Zafar Tobacco Use Start: Unknown Never Smoked Cigarettes ETOH Use Denies alcohol use Tobacco Use Start: Unknown Patient has never smoked Smoking Status Reviewed: 04/11/18 Patient has never smoked Exercise Exercises sporadically Type/Frequency Allergies, Adverse Reactions, Alerts Description No Known Drug Allergies Medications Medication Date Status Form Strength Qnty SIG Indications Ordering Provider Omeprazole 10/19/ Active Capsules 20mg 90caps Take 1 K21.[address] Capsule By BUDDER Mouth Once Daily Simvastatin 01/03/ Active Tablets 40mg 90tabs Take 1 Toro Nelson 2009 Tablet By BUDDER Mouth AT Bedtime Trazodone HCL 04/17/ Hx Tablets 50mg 30tabs 1-2 tablets G47.00 Toro Nelson 2017 - at bedtime BUDDER 01/28/ as needed. 2017 Clobetasol 04/17/ Hx Cream 0.05% 30gm apply twice 709.9 Toro Leslie, Propionate E 2017 - daily for BUDDER 01/28/ up to 2 2017 weeks, stay [...] by mouth Bethany 2009 - once daily Cotton, 01/05/ M.D. 2009 Lisinopril/Hy 01/03/ Hx Tablets 20-25mg 90tabs Take 1 Bethany drochlorothia 2009 - Tablet tori Do 04/25/ Daily M.D. 2014 Nexium 01/03/ Hx Capsules 40mg 90caps Take [...] CPT Code Status Date Vaccine Lot # [id number] Given 01/24/2018 Influenza Virus Vaccine, Quadrivalent, Split, Preservative Free 13133 Given 12/30/2016 Influenza Virus Vaccine, Quadrivalent, Split, Preservative Free [id number] Given 01/18/2016 Flu Vaccine NOS 93744 Given 04/14/2015 Pneumococcal Conjugate Vaccine 13 Valent For [id number] Intramuscular Use 78555 Given 01/28/2015 Fluzone High Dose 37002 Given 01/24/2014 Fluzone High Dose 13031 Given 02/12/2013 Flu Vaccine Split Virus Preservative Free For Indiv [id number] 3Yr Older 05672 Given 12/24/2011 Influenza Virus 3Yrs & Over 02196 Given 01/05/2010 Influenza Virus 3Yrs & Over 80950 Given 04/16/2009 Influenza Virus Vaccine, Pandemic Formulation 89755 Given 04/16/2009 Administration Swine Flu Shot 54605 Given 01/06/2009 Influenza Virus 3Yrs & Over 41808 Given 01/27/2006 Influenza Virus 3Yrs & Over Vital Signs Date Vital Result Comment 04/11/2018 10:06am Height 67 inches 5'7" Weight [...] Test Result H/L Range Note Order 04/11/2018 Computer Programming Professor In-House EKG <pending> Laboratory test 04/17/2017 [facility] TSH 1.88 mcIU/mL N 0.34- 5.[address] ([place] [address] Vxfs Ovqp) [phone] CBC Auto Diff 04/17/2017 [facility] White Blood 5.7 10^3/uL N 3.5-10.[address] [place] [place] [address] [phone] Red Blood Count 4.95 10^6/uL N 4.0-5.4 [...] Blood Cells % 0.1 Laboratory test 04/17/2017 [facility] Vitamin B12 549 pg/mL N 180-914 1 finding [address] [place] [address] [phone] Vitamin D Total 25(Oh) 16.6 ng/mL Low 20-50 Hemoglobin A1c (Glyco HGB) 6.0 % High 4.0-5.6 2 Lipid Profile 04/07/2017 [facility] Triglycerides 76 mg/dL 3 (Trig/Chol/HDL) [address] [place] [address] [phone] Cholesterol 147 mg/dL 4 HDL Cholesterol 36.8 mg/dL 5 LDL Cholesterol 95 mg/dL 6 Comp Metabolic Panel 04/07/2017 [facility] Sodium 139 mmol/L N 133-145 [address] [place] [address] [phone] Potassium 4.2 mmol/L N 3.5-5.0 Chloride 104 [...] Egfr 115.8 >60 7 Laboratory test 04/07/2017 [facility] PSA Screening 2.300 ng/mL N 0-4.000 [address] [place] [address] [phone] Lipid Profile 04/15/2016 [facility] Triglycerides 101 mg/dL N 9 (Trig/Chol/HDL) [address] [place] [address] [phone] Cholesterol 141 mg/dL N 10 HDL Cholesterol 35.4 mg/dL N 11 LDL Cholesterol 85 mg/dL N 12 Comp Metabolic Panel 04/15/2016 [facility] Sodium 137 mmol/L N 133-[address] [place] [address] [phone] Potassium 4.1 mmol/L N 3.5-5.0 Chloride 105 [...] 98.4 N >60 13 Laboratory test 04/15/2016 [facility] PSA Screening 1.260 N 0- 4.000 [address] ng/[place] [address] [phone] Laboratory test 10/14/2015 [facility] Hemoglobin A1c 5.9 % N Less than [address] (Glyco HGB) 6.0 [place] [address] [phone] Laboratory test 04/14/2015 [facility] PSA Screening 1.394 N 0- 4.000 [address] ng/[place] [address] [phone] Hepatitis C Antibody Nonreactive N Nonreactive Lipid Profile 03/30/2015 [facility] Triglycerides 137 mg/dL N 17 (Trig/Chol/HDL) [address] [place] [address] [phone] Cholesterol 179 mg/dL N 18 HDL Cholesterol 38.5 mg/dL N 19 LDL Cholesterol 113 mg/dL N 20 Comp Metabolic Panel 03/30/2015 [facility] Sodium 137 mmol/L N 133-145 [address] [place] [address] [phone] Potassium 4.1 mmol/L N 3.5-5.0 Chloride 103 [...] 89.1 N >60 21 Laboratory test 03/30/2015 [facility] Hemoglobin A1c 6.2 % High Less than 22 finding 101 [facility] (Glyco HGB) 6.0 [place] [address] [phone] Ua Routine 10/03/2014 Computer Programming Professor In House Ua Specific 1.005 [place] Ua PH 5.0 Ua Color yellow Ua Appera clear Ua WBC trace Ua Protein neg Ua Glucose neg Ua Ketones trace Ua Bilirubin small Ua Urobilinogen normal Ua Nitrite neg Ua Occult Blood neg Urinalysis Profile 10/03/2014 [facility] Urine Color Yellow N [address] [place] [address] [phone] Urine Appearance Clear N Urine Specific [place] 1.011 N 1.010-1.030 Urine pH 5.0 N [...] Present Abnormal Absent Ua And Culture 10/03/2014 [facility] Urine Culture And SEE RESULT [address] [place] [address] [phone] Laboratory test 10/03/2014 [facility] Amylase 53 U/L N 29-[address] 3 [place] [address] [phone] Lipase 14 U/L N 11.0-82.0 Comp Metabolic Panel 10/03/2014 [facility] Sodium 137 mmol/L N 133-[address] [place] [address] [phone] Potassium 4.6 mmol/L N 3.5-5.0 Chloride 103 [...] 90.3 N >60 24 Laboratory test 10/03/2014 [facility] D Dimer < 200 N Less [address] Quantitative ng/mL Than 230 [place] [address] [phone] Laboratory test 04/07/2014 PSA Diagnostic 1.799 N [...] 22 U/L N 13-39 Lipid Profile 02/05/2014 [facility] Triglycerides 105 mg/dL N 31 (Trig/Chol/HDL) [address] [place] [address] [phone] Cholesterol 229 mg/dL N 32 HDL Cholesterol 37.7 mg/dL N 33 LDL Cholesterol 170 mg/dL N 34 Comp Metabolic Panel 02/05/2014 [facility] Sodium 138 mmol/L N 133-145 [address] [place] [address] [phone] Potassium 4.2 mmol/L N 3.7-5.6 Chloride 106 [...] N >60 35 Comp Metabolic Panel 01/18/2013 [facility] Sodium 138 mmol/L 133-[address] [place] [address] [phone] Potassium 4.2 mmol/L 3.5-5.0 Chloride 105 mmol/L [...] Egfr 85.9 >60 36 Lipid Profile 01/18/2013 [facility] Triglycerides 63 mg/dL 40 -200 (Trig/Chol/HDL) [address] [place] [address] [phone] Cholesterol 130 mg/dL Less than 200 HDL Cholesterol 35 mg/dL Low 40-60 37 Cholesterol/HDL Ratio 3.7 Average 1-4.44 LDL Cholesterol 82.4 Less Than 100 38 Laboratory test 01/18/2013 [facility] Hemoglobin A1c 5.8 % Less than [address] 6[address]0 [place] [address] [phone] Laboratory test 03/05/2012 [facility] PSA Diagnostic 1.3 0- 4.0 [address] NG/[place] [address] [phone] Ua Routine 02/07/2012 Computer Programming Professor In House Ua Specific 1.010 [place] Ua PH 6 Ua Color yellow Ua Appera clear Ua WBC neg Ua Protein neg Ua Glucose neg Ua Ketones neg Ua Bilirubin neg Ua Urobilinogen neg Ua Nitrite neg Ua Occult Blood neg Comp Metabolic Panel 12/21/2011 [facility] Sodium 139 mmol/L 135-145 [address] [place] [address] [phone] Potassium 4.3 mmol/L 3.5-5.0 Chloride 103 mmol/L [...] 108.6 > 60 43 Laboratory test 12/21/2011 [facility] Hemoglobin A1c 6.1 % High Less Than 44 finding 101 [facility] 6.0 [place] [address] [phone] Lipid Profile 12/21/2011 [facility] Triglyceride 76 mg/dL 40- 200 (Trig/Chol/HDL) [address] [place] [address] [phone] Cholesterol 166 mg/dL Less Than 200 45 High Density Lipoprotein 39 mg/dL Low 40-60 46 Cholesterol/HDL Ratio 4.26 AVERAGE 1-4.97 Low Density Lipoprotein 112 mg/dL High Less Than 100 47 Surgical 02/14/2011 [facility] Surgical 48 Pathology 101 [facility] Pathology <SEE NOTE> [place] [address] [phone] Laboratory 01/17/2011 [facility] PSA Screening 1.29 NG/ML 0- 4 49 test finding [address] [place] [address] [phone] Comp Metabolic 01/17/2011 [facility] Sodium 140 mmol/L 135- Panel [address] [place] [address] [phone] Potassium 4.4 mmol/L 3.5-5.0 Chloride 104 mmol/L [...] 96.4 > 60 52 Lipid Profile 01/17/2011 [facility] Triglyceride 96 mg/dL 40- 200 (Trig/Chol/HDL) [address] [place] [address] [phone] Cholesterol 166 mg/dL Less Than 200 53 High Density Lipoprotein 34 mg/dL Low 40-60 54 Cholesterol/HDL Ratio 4.88 AVERAGE 1-4.97 Low Density Lipoprotein 113 mg/dL High Less Than 100 55 Laboratory test 01/17/2011 [facility] Hemoglobin A1c 6.0 % Less Than [address] 6[address] [place] [address] [phone] Laboratory test 01/20/2010 [facility] PSA Screening 1.13 0-4 [address] NG/[place] [address] [phone] Hemoglobin A1c 6.0 % Less Than 6.0 58 CBC With 01/20/2010 [facility] White Blood 6.3 CUMM 4.8-10.8 Electronic Diff [address] [place] [address] [phone] Red Cell Count 4.57 CUMM Low 4.6-6.2 [...] in selective patients <6.0%. Please refer to [place] [employer] diabetic care guidelines for further [...] Serum levels of PSA measured using the [employer] DXI Hybritech immunoassay should not be interpreted [...] Serum levels of PSA measured using the [employer] DXI Hybritech immunoassay should not be interpreted [...] and in selective patients <6.0%.Please refer to [place] [employer] Diabetic care guidelines for further information. 16 Serum levels of PSA measured using the [employer] DXI Hybritech immunoassay should not be interpreted [...] and in selective patients <6.0%.Please refer to [place] [employer] Diabetic care guidelines for further information. 23 SEE RESULT BELOW Name: ANSLEY GALLAGHER : [address]: Toro Nelson NP Acct: [id number] Unit: [id number] AGE: 68 Location: [facility] Re10/03/14 SEX: M Status: REG REF SPEC: [id number] RUBEN: 10/03/14-[address]: Toro Nelson NP REQ: [id number] RECD: 10/03/140519 STATUS: COMP _ SOURCE: URINE SPDESC: ORDERED: Urine Culture Procedure Result Verified Site Urine Culture Final 10/05/14- 1017 ML No Growth Day 2 (<1,000 CFU/mL) * ML - MAIN LAB ([facility]) . END OF REPORT * ML=Testing performed at Main Lab DEPARTMENT OF PATHOLOGY, [address] [place] [address] Madan Hoyos M.D. Director [facility] # [id number] 24 Because ethnic data is not always [...] levels of PSA measured using the [employer] [place] DXI Hybritech immunoassay should not be interpreted [...] and in selective patients <6.0%.Please refer to [place] [employer] Diabetic care guidelines for further information. 40 Serum levels of PSA measured using the [employer] DXI Hybritech immunoassay should not be interpreted [...] IN SELECTIVE PATIENTS <6.0%. PLEASE REFER TO [place] [employer] DIABETIC CARE GUIDELINES FOR FURTHER [...] 189 MG/DL 48 ---- RUN DATE: 02/15/11 [facility] NMI LIVE PAGE 1 RUN TIME: 1435 Specimen Inquiry RUN USER: INTERFACE -- Name: LETYJAKANSLEY Status: REG REF Re02/14/11 Age/Sex: 65/M Unit#: [id number] Location: [facility]. : 45 -- Specimen: [id number] SOUT Spec Date: 02/14/[address]: Dg pryor MD Spec Type: SURGICAL P Received: 02/14/11-8713 Copies to: Bethany barrera MD SPECIMEN 1) [...] is received in formalin labelled Ansley Gallagher, Colon Polyp at 19 cm., and [...] 02/15/11 1432 -- -- DEPARTMENT OF PATHOLOGY, [address] [place] [address] [facility] Permit #[id number] Madan Hoyos M.D. Director Bere Bass M.D. [employer] Barge Dir sydnee -- 49 * SERUM LEVELS OF PSA MEASURED USING THE [employer] ACCESS HYBRITECH IMMUNOASSAY SHOULD NOT BE INTERPRETED [...] IN SELECTIVE PATIENTS <6.0%. PLEASE REFER TO [place] [employer] DIABETIC CARE GUIDELINES FOR FURTHER INFORMATION. 57 * SERUM LEVELS OF PSA MEASURED USING THE [employer] [place] ACCESS HYBRITECH IMMUNOASSAY SHOULD NOT BE INTERPRETED ABSOLUTE EVIDENCE OF THE PRESENCE OR ABSENCE OF DISEASE. THE PSA VALUE SHOULD BE USED IN CONJUNCTION WITH OTHER PERTINENT CLINICAL DIAGNOSTIC PROCEDURES. 58 THERAPEUTIC TARGET FOR THE TREATMENT OF DIABETES MELLITUS PATIENTS IS <7% HBA1C, AND IN SELECTIVE PATIENTS <6.0%. PLEASE REFER TO [place] DIABETIC CARE GUIDELINES FOR FURTHER INFORMATION. Procedures Date Code Description Status 04/11/2018 57246 EKG Tracing & Interpretation Completed 01/29/2018 04954 Inject/Drain Joint/Bursa Major W/O US Completed 03/01/2016 [id number] Colonoscopy Completed 02/14/2011 [id number] Colonoscopy Completed 01/05/2010 13875 EKG Tracing & Interpretation Completed 04/16/2009 83851 EKG Tracing & Interpretation Completed 01/06/2009 12978 EKG Tracing & Interpretation Completed 11/25/2008 [id number] Diabetic Retinal Eye Exam Completed 03/05/2007 93281 EKG Tracing & Interpretation Completed 03/05/2007 07643 EKG Tracing & Interpretation Completed Encounters Type Date Location Provider Dx Diagnosis Office Visit 01/29/2018 [facility] Bianca Kay, M25.562 Pain in left knee 8:[facility]a [facility] M25.462 Effusion, left knee M17.12 Unilateral primary osteoarthritis, left knee Office Visit 04/17/2017 9:20a [facility] Toro Nelson, Z00.00 Encntr for Medicine - BUDDER general adult [place] medical exam w/o abnormal findings E78.5 Hyperlipidemia, unspecified R73.01 Impaired fasting glucose J20.9 Acute bronchitis, unspecified R53.83 Other fatigue R45.4 Irritability and anger G47.00 Insomnia, unspecified Office Visit 10/20/2015 8:40a [facility] Toro Nelson, I10 Essential ( primary) Medicine - BUDDER hypertension [place] R73.01 Impaired fasting glucose K21.9 Gastro-esophageal reflux disease without esophagitis R10.31 Right lower quadrant pain Office Visit 10/03/2014 9:40a [facility] Toro Nelson, 789.09 Pain Abdominal Medicine - BUDDER Other Spec Site [place] 786.52 Painful Respiration 789.07 Pain Abdominal Generalized 724.2 Lumbago Office Visit 02/13/2014 10:40a [facility] Jennifer Guajardo, V70.0 Examination Medicine - N.P. General Medical [place] Routine AT Health Care Facility 401.1 Hypertension Benign 272.4 Hyperlipidemia Other Unspec 790.21 Impaired Fasting Glucose 530.81 Esophageal Reflux 600.00 Hypertrophy Prostate W/O Urinary Obstruction & Other Luts Office Visit 08/12/2013 11:40a [facility] Jennifer Guajardo, 401.1 Hypertension Medicine - N.P. Benign [place] Office Visit 03/21/2013 11:20a [facility] Bethany 401.1 Hypertension Medicine - Cotton, M.D. Benign [place] Office Visit 02/12/2013 8:40a [facility] Jennifer Guajardo V70.0 Examination Medicine - N.P. General Medical [place] Routine AT Health Care Facility 401.1 Hypertension Benign 272.4 Hyperlipidemia Other Unspec 790.21 Impaired Fasting Glucose 530.81 Esophageal Reflux V04.81 Need For Prophylactic Vaccination & Inoculation/Influenza 709.9 Skin & Subcutaneous Tissue Disorders Unspec Office Visit 07/28/2011 8:40a [facility] Bethany 401.1 Hypertension Kellen Do M.D. Benign [place] 790.21 Impaired Fasting Glucose 272.4 Hyperlipidemia Other Unspec 530.81 Esophageal Reflux Office Visit 03/09/2010 DO Not Use Jennifer Guajardo, 466.0 Bronchitis Acute 9:45a [facility] Office Visit 01/05/2010 DO Not Use Bethany V72.83 Examination 1:15p Matteo Do M.D. Preoperative Other Spec V72.84 Examination Preoperative Unspec 836.0 Dislocation Knee Tear Of Medial Cartilage Or Meniscus Curren 401.1 Hypertension Benign 272.4 Hyperlipidemia Other Unspec 790.21 Impaired Fasting Glucose V04.81 Need For Prophylactic Vaccination & Inoculation/Influenza Office Visit 07/07/2009 1:15p DO Not Use [place], 790.21 Impaired Matteo Vogel M.D. Fasting Glucose 272.4 Hyperlipidemia Other Unspec 401.1 Hypertension Benign Office Visit 04/16/2009 DO Not Use Radsharri, V72.84 Examination 2:15p Matteo Vogel M.D. Preoperative [...] Use Jennifer Varn, 465.9 URI Upper 3:15p [facility] Respiratory Infections Acute Unspec Sites 466.0 [...] Not Use Jennifer Varn, 466.0 Bronchitis Acute [facility] 416.9 Pulmonary Heart Disease Unspec Chronic Plan of Treatment Future Appointment(s):04/12/2019 11:00 am - Toro Nelson NP at [facility] - Qvdguwoqt97/10/2019 10:15 am - Andrew Giron PA-C at [facility].04/19/2018 10:15 am - TANYA Norton at [facility].04/19/2018 10:15 am - Bianca Kay M.D. at [facility]04/13/2018 8:00 am - Bianca Kay M.D. at [facility]/11/2018 - Toro Nelson, NPZ01.818 Encounter for other preprocedural dtmlmhzdnhdW18.562 Pain in left kneeE78.5 Hyperlipidemia, uoeavbvidncD35 Essential (primary) hypertension
[2018-04-19] MEDS ORDERED: ceFAZolin 2 GM PREMIX in ORs 2 GM/50 ML BAG IVPB ONE (07:59)
[2018-04-19] MEDS ORDERED: ROPIVACAINE 5 MG/ML 30 ML BTL (0.5%) ONE (09:27)
[2018-04-19] MEDS ORDERED: Lidocaine 2% PF * 5 ML VIAL ONE (09:52)
[2018-04-19] MEDS ORDERED: Bupivacaine 0.5% SDV PF* 30ML VIAL ONE (09:52)
[2018-04-19] MEDS ORDERED: Phenylephrine INJ* 10 MG/ML 1 ML VIAL (10 MG) ONE (10:50)
[2018-04-19] MEDS ORDERED: Midazolam* 1 MG/ML 2 ML VIAL (2 MG) ONE (10:53)
[2018-04-19] MEDS ORDERED: Ondansetron TAB* 4 MG PO PRN (13:05)
[2018-04-19] MEDS ORDERED: Ondansetron INJ* 2 MG/ML VIAL IV PRN (13:05)
[2018-04-19] MEDS ORDERED: Cyclobenzaprine TAB* 10 MG PO PRN (13:05)
[2018-04-19] MEDS ORDERED: oxyCODONE/Acetamin 5/325 MG* TAB PO PRN (13:05)
[2018-04-19] MEDS ORDERED: Morphine VIAL* 4 MG/ML VIAL (1 ml vial) IV PRN (13:05)
[2018-04-19] MEDS ORDERED: Polyethylene Glycol 3350* 17 GM PACKET PO PRN (13:05)
[2018-04-19] MEDS ORDERED: Magnesium Hydroxide LIQ* 30 ML UDC PO PRN (13:05)
[2018-04-19] MEDS ORDERED: diPHENhydraMINE IV* 50 MG/ML 1 ml VIAL (BENADRYL) IV PRN (13:05)
[2018-04-19] MEDS ORDERED: Bisacodyl SUPP* 10 MG SUPP PR PRN (13:05)
[2018-04-19] MEDS ORDERED: oxyCODONE TAB* 5 MG TAB PO PRN (13:05)
[2018-04-19] MEDS: Acetaminophen TAB* 325 MG PO SCH ×2 (14:00→22:03)
[2018-04-19] MEDS: Lactated Ringers 1000 ML Bag* 1,000 ML IV SCH (14:50)
[2018-04-19] MEDS: oxyCODONE/Acetamin 5/325 MG* TAB PO PRN ×2 (16:00→20:41)
[2018-04-19] MEDS ORDERED: Warfarin TAB(*) 6 MG PO ONE (17:00)
--- NOTE | 2018-04-19 17:06 | PN ---
Progress Note - Progress Note Date of Service: 04/19/18 SOAP: []Patient was seen and examined at bedside POD 0 sp LTK. Knee pain is well controlled. Denies CP, SOB, dizziness, nausea. DF/PF intact, sensation intact distally, DP2+. No history of DVT or PE, lovenox bridge to coumadin for DVT prophylaxis
[2018-04-19] MEDS: ceFAZolin 1 GM ADVAN(*) 1 GM in NS 0.9% 50 ML* 50 ML IVPB SCH (18:06)
[2018-04-19] MEDS: traMADol TAB* 50 MG PO PRN (18:13)
[2018-04-19] MEDS: Docusate CAP* 100 MG PO SCH (20:41)
[2018-04-19] MEDS: Magnesium Hydroxide LIQ* 30 ML UDC PO SCH (20:42)
[2018-04-19] MEDS ORDERED: Pantoprazole TAB * 40 MG TAB PO SCH (21:00)
[2018-04-19] MEDS ORDERED: Atorvastatin* 20 MG TAB PO SCH (21:00)
--- NOTE | 2018-04-19 22:39 | OP ---
DATE OF OPERATION: 04/19/18 - ROOM #342 DATE OF : 45 SURGEON: Bianca Kay MD SPRING TACKER: TANYA Bermudez. Ms. Baker did help throughout the procedure with preparation of the leg, wound retraction, manipulation of the knee and wound closure. ANESTHESIOLOGIST: Dr. Plasencia. ANESTHESIA: Spinal. PRE-OP DIAGNOSIS: Severe end-stage degenerative osteoarthritis of the left knee joint. POST-OP DIAGNOSIS: Severe end-stage degenerative osteoarthritis of the left knee joint. OPERATIVE PROCEDURE: Left total knee arthroplasty. TOURNIQUET TIME: 48 minutes. COMPLICATIONS: None. ESTIMATED BLOOD LOSS: 200 cc. SPECIMENS: Bone and cartilage from the left knee joint sent to Pathology. HARDWARE USED: This is a cemented [employer] total knee arthroplasty hardware. Two packages of Simplex bone cement. For the femur, a Legion posterior stabilized size 7 femoral component. For the tibia, a Nelda II size 5 left tibial baseplate. For the insert, an 11-mm posterior stabilized articular insert, size 5/6 and for the patella, a 35-mm 3-peg all poly patella. BRIEF HISTORY/INDICATIONS: Mr. Menchaca is a 72-year-old gentleman with a severe left knee pain over many years. His radiographs showed [id number] arthritis. He failed conservative treatment with antiinflammatories, pain medications, intraarticular injection and physical therapy. Due to continued pain and decreased quality of life, he elected to undergo left total knee arthroplasty. Informed consent was obtained from the patient. He understood the risks of surgery included, but were not limited to bleeding, infection, damage to nearby structures, continued pain, need for further surgery, intraoperative fracture, nerve palsy, hardware failure or loosening, knee stiffness, loss of motion, stroke, heart attack, blood clot, and . He wished to proceed. INTRAOPERATIVE FINDINGS: Intraoperatively, the patient was noted to have severe end-stage arthritis with extensive osteophyte formation. He had complete loss of cartilage in all 3 compartments. DESCRIPTION OF PROCEDURE: Mr. Menchaca was identified in the preanesthesia unit. His left lower extremity was marked as the correct operative side. Informed consent was signed and placed in the chart. The patient was taken to the operating room and placed under spinal anesthesia. A Encinas catheter was placed. Tourniquet was placed on the left thigh. Left lower extremity was prepped and draped in the usual sterile fashion. Preop time-out was made to correctly identify the patient, side and site. Appropriate perioperative antibiotics were given within 1 hour of incision. Tourniquet was inflated and total tourniquet time for this procedure was 48 minutes. A midline incision was made and carried down to the extensor mechanism. A new 10 blade was used to make a standard medial parapatellar arthrotomy. Electrocautery was used to elevate soft tissue off the superomedial tibia to the mid sagittal plane. The knee was flexed up. The anterior horn of the lateral meniscus and ACL were sharply released. A drill was used to enter the distal femur. Intramedullary distal femoral cutting guide was pinned on the distal femur. Oscillating saw was used to make the distal femoral cut. Next, the external rotation guide was pinned on the distal femur. Distal femur was sized to a size 7. Size 7 multi- cutting jig was pinned on the distal femur. Oscillating saw was used to make the appropriate 4 chamfer cuts. The PCL was completely released. The tibia was subluxed anteriorly. Extramedullary tibial cutting guide was pinned on the proximal tibia. Oscillating saw was used to make the proximal tibial cut perpendicular to the mechanical axis of the tibia. The bone was carefully removed. The knee was brought out into full extension. A spacer block had good fit with the knee in full extension. Medial and lateral ligaments were well balanced. Flexion and extension gaps were well balanced. The knee was flexed up. A lamina ornamental ironworker helper was placed both medially and laterally. Any remaining meniscus was carefully removed using electrocautery. Curved osteotome was used to remove any posterior osteophytes. Tibial tray and drop rods were placed and once again confirmed a satisfactory tibial cut. A size 7 left femoral trial was impacted onto the distal femur and had excellent stability. The box for the posterior stabilized implant was prepared using a reamer and box cut osteotome. A size 5 tibial tray trial with a 11-mm insert trial was placed and the knee was taken through a range of motion. The knee had full extension to 130 degrees of flexion. There was satisfactory patellofemoral tracking. The patella was everted. 9 mm of patellar bone and cartilage was carefully removed using an oscillating saw. Patella was sized to a size 35. Three peg holes were drilled through the size 35 guide. A 35 trial patella was placed and the knee was taken through range of motion. There was satisfactory patellofemoral tracking. All trials were carefully removed. The tibia was subluxed anteriorly and sized to a size 5. Proximal tibia was prepared using a size 5 keel punch. All bony cut surfaces were copiously irrigated with sterile saline and dried. Final implants were cemented into place starting with the tibia, followed by the femur, and last the patella. A 11-mm insert trial was placed and the knee was brought out into full extension. Tourniquet was turned down at 48 minutes. The knee was copiously irrigated with sterile saline. Electrocautery was used to obtain meticulous hemostasis. Once the cement had fully cured, the insert trial was removed. Any excess cement was removed from around the capsule and hardware. Final insert chosen was an 11-mm posterior stabilized articular insert, size 5/6. This was locked into position on the tibial tray without any difficulty. Stability of the insert was checked and rechecked and noted to be stable. The extensor mechanism was closed using interrupted #1 Vicryl. The rest of the incision was closed in a layered fashion using 0 and 2-0 Vicryl. Skin was closed using running 3-0 nylon suture. Sterile Xeroform, 4x4's, and Webril were used to cover the incision. Mando wrap and cold pack were placed over this. The patient's anesthesia was reversed without difficulty. He was taken to the PACU in stable condition. Intended weightbearing will be weightbearing as tolerated. Intended DVT prophylaxis will be Coumadin with a Lovenox bridge. [id number]/[facility] #: [id number] ARGELIA
[2018-04-20] MEDS: oxyCODONE/Acetamin 5/325 MG* TAB PO PRN ×4 (00:32→15:07)
[2018-04-20] MEDS: Lactated Ringers 1000 ML Bag* 1,000 ML IV SCH (00:35)
[2018-04-20] MEDS: ceFAZolin 1 GM ADVAN(*) 1 GM in NS 0.9% 50 ML* 50 ML IVPB SCH ×2 (02:03→10:22)
[2018-04-20 05:40] LABS: Hematocrit 39 % (42-52); Hemoglobin 13.1 g/dl (14.0-18.0); Mean Platelet Volume 9.7 fL (7.4-10.4); Platelet Count 159 10^3/ul (150-450)
[2018-04-20 05:44] LABS: INR 1.08 (0.77-1.02)
[2018-04-20 06:02] LABS: Calcium 8.3 mg/dL (8.6-10.3); EGFR Non-African American 73.5 (>60); Potassium 4.3 mmol/L (3.5-5.0)
[2018-04-20] MEDS: traMADol TAB* 50 MG PO PRN ×2 (06:19→12:46)
[2018-04-20] MEDS: Acetaminophen TAB* 325 MG PO SCH ×2 (06:20→14:21)
[2018-04-20] MEDS: Docusate CAP* 100 MG PO SCH (08:58)
[2018-04-20] MEDS: Magnesium Hydroxide LIQ* 30 ML UDC PO SCH (08:58)
[2018-04-20] MEDS ORDERED: Enoxaparin(*) 40 MG/0.4 ML SYR SUBCUT SCH (09:00)
[2018-04-20 12:04] VITALS: BP 118/59
--- NOTE | 2018-04-20 20:44 | DS ---
DISCHARGE SUMMARY: DATE OF ADMISSION: 04/19/18 DATE OF DISCHARGE: 04/20/18 ATTENDING PHYSICIAN: Dr. Bianca Kay.* (DICTATED BY TANYA DUDLEY) ADMISSION DIAGNOSIS: Severe end-stage degenerative osteoarthritis, left knee. DISCHARGE DIAGNOSIS: Severe end-stage degenerative osteoarthritis, left knee. SURGERY PERFORMED: Left total knee arthroplasty. HOSPITAL COURSE: The patient is a 72-year-old male with severe left knee pain over the last several years. His plain films revealed [id number] degenerative arthritis. He failed conservative management with anti- inflammatories, pain medications, and intra-articular cortisone injections as well as physical therapy. Due to continued pain and decreased quality of life, he elected to proceed with left total knee arthroplasty and was taken to the operating room under the care of Dr. Bianca Kay on 04/19/18. He tolerated the procedure well and left the operating room in stable condition. Post- operatively, he did very well with his physical therapy, bearing weight as tolerated on the left lower extremity. He had no postoperative medical or orthopedic complications. His pain was under excellent control postoperative day #1 and it was thought he was stable for discharge to home, 04/20/18. CONDITION ON DISCHARGE: The patient denies shortness of breath, chest pain, palpitations, or dizziness with ambulation. His knee incision is healing without active drainage or evidence of infection. His calf is soft and nontender. He has active dorsiflexion of the left ankle. His circulation and sensation are intact distally. Vital Signs: Temperature 97.8, pulse 79, respiratory rate 16, O2 sats 96% on room air, blood pressure 118/59. PLAN: The patient is discharged to home. He will participate with outpatient physical therapy at [facility]. He is prescribed Eliquis 2.5 mg p.o. b.i.d. for DVT prophylaxis, which he will take for 30 days postoperatively. He was provided with a prescription of Percocet 5/325 one to two tablets p.o. q.4 hours p.r.n. pain, #42, zero refills. He will follow up as scheduled in 10 to 14 days in the office with Dr. Kay. All questions were answered. TANYA DUDLEY [id number]/[facility] #: [id number] ARGELIA
== END 2018-04-20 16:05 | disposition home or self-care (01) ==
LOC: INTOOBSV 07:04 → AA 07:04 → SSU 14:45
PROVIDERS: ADMIT Orthopaedic Surgery Adult Reconstructive Orthopaedic Surgery; ATTEND Orthopaedic Surgery Adult Reconstructive Orthopaedic Surgery
DX: M17.12 Unilateral primary osteoarthritis, left knee (principal); E78.5 Hyperlipidemia, unspecified; I10 Essential (primary) hypertension; R73.01 Impaired fasting glucose; M25.562 Pain in left knee
CPT/HCPCS: 36415; 80048; 85014; 85018; 85049; 85610; 96372; 96374; 96375; A9270-GY; G0378; G8978-GP-CJ; G8979-GP-CI; J0690; J1100; J1650; J2250; J2704; J2795; J3010